=== PATIENT | female | born 1990 | race Caucasian/White ===

== ENCOUNTER 2019-06-27 21:38 | Emergency (ER) | payer BC ==
--- OUTSIDE RECORDS SUMMARY | 2019-06-27 21:45 | XMS REPORT | Continuity of Care Document ---
:1990 External Reference #:[id number] Author Name Yunier Mathew MD Address [address] [id number] Problems Description No Information Available Social History Type Date Description Comments Sex Unknown Allergies, Adverse Reactions, Alerts Description No Known Drug Allergies Medications Description No Information Available Immunizations CPT Code Status Date Vaccine Lot # [id number] Given 02/13/2019 Influenza Virus Vaccine, Quadrivalent, 3 Yr > [id number], Preserv Free Vital Signs Date Vital Result Comment 06/08/2019 12:30pm Weight 134.00 lb Weight 60.782 kg BP Systolic 118 mmHg BP Diastolic 69 mmHg Heart Rate 72 /min Body Temperature 97.3 F Respiratory Rate 16 /min O2 % BldC Oximetry 97 % 02/20/2019 10:04am Weight 122.00 lb Weight 55.339 kg BP Systolic 118 mmHg BP Diastolic 68 mmHg Heart Rate 68 /min Body Temperature 98.1 F Respiratory Rate 16 /min Height 63.5 inches 5'3.50" BMI (Body Mass Index) 21.3 kg/m2 O2 % BldC Oximetry 97 % Results Test Acquired Date Facility Test Result H/L Range Note Laboratory test finding 06/08/2019 In House Lab Strep PCR neg (607)- - Procedures Description No Information Available Medical Devices Description No Information Available Encounters Type Date Location Provider Dx Diagnosis Office Visit 02/20/2019 Main Office Taylor Clark NP J02.9 Acute pharyngitis, 10:00a unspecified Z33.1 state, incidental Assessments Date Code Description Provider 06/08/2019 J02.9 Acute pharyngitis, unspecified Yunier Mathew MD 02/20/2019 J02.9 Acute pharyngitis, unspecified Taylor Clark NP 02/20/2019 Z33.1 state, incidental Taylor Clark NP 02/13/2019 Z23 Encounter for immunization Taylor Clark NP Plan of Treatment 06/08/2019 - Yunier Mathew MDJ02.9 Acute pharyngitis, unspecifiedComments: Recommended treatment of symptoms with OTC medications as appropriate. Expect resolution of illness without intervention. Discussed warning symptoms and signs that require reevaluation of diagnosis or emergency reevaluation. Functional Status Description No Information Available Mental Status Description No Information Available Referrals Description No Information Available
[2019-06-27 21:49] VITALS: BP 109/49
[2019-06-27 21:56] LABS: Influenza B Molecular POSITIVE (Negative)
[2019-06-27] MEDS ORDERED: Oseltamivir CAP* 75 MG CAP PO ONE ×2 (21:56→21:57)
--- NOTE | 2019-06-27 21:58 | UC ---
FLU HPI - HPI Summary HPI Summary: 28-year-old who is 23 weeks comes in with influenza-like symptoms. She 's had upper respiratory tract infection symptoms for 2 or 3 days. Today she felt a sudden onset of a high fever body aches and fatigue. She took some Tylenol which did help some with the symptoms. She is feeling the baby move normally. - History of Current Complaint Chief Complaint: UCRespiratory Stated Complaint: FLU SYMPTOMS Time Seen by Provider: 06/27/19 21:39 Pain Intensity: 5 - Allergy/Home Medications Allergies/Adverse Reactions: Allergies Allergy/AdvReac Type Severity Reaction Status Date / Time No Known Allergies Allergy Verified 06/27/19 21:49 Home Medications: Home Medications Vitamin 1 tab PO DAILY 05/19/15 [History Confirmed 06/27/19] Acetaminophen/Diphenhydramine [Acetaminophen Pm Caplet] 1 each PO DAILY PRN [History Confirmed 06/27/19] Oseltamivir CAP* [Tamiflu CAP*] 75 mg PO BID #8 cap 06/27/19 [Rx] PMH/Surg Hx/FS Hx/Imm Hx Previously Healthy: Yes - Surgical History Surgical History: Yes Surgery Procedure, Year, and Place: elbow surgery as a child - Family History Known Family History: Positive: Non-Contributory - Social History Alcohol Use: None Substance Use Type: None Smoking Status (MU): Never Smoked Tobacco Have You Smoked in the Last Year: No - Immunization History Most Recent Influenza Vaccination: 03/01/15 Most Recent Tetanus Shot: 02/15/15 Most Recent Pneumonia Vaccination: none Review of Systems All Other Systems Reviewed And Are Negative: Yes Constitutional: Positive: Fever, Chills, Fatigue, Other - SEE HPI Skin: Positive: Negative Eyes: Positive: Negative ENT: Positive: Nasal Discharge Respiratory: Positive: Cough Cardiovascular: Positive: Negative Gastrointestinal: Positive: Negative Motor: Positive: Negative Neurovascular: Positive: Negative Musculoskeletal: Positive: Myalgia Neurological/Mental Status: Positive: Negative Psychological: Positive: Negative Is Patient Immunocompromised?: No Physical Exam Triage Information Reviewed: Yes Appearance: No Pain Distress, Well-Nourished, Ill-Appearing - MILD Vital Signs: Initial Vital Signs Temp 99.5 F 06/27/19 21:40 Pulse 105 06/27/19 21:40 Resp 16 06/27/19 21:40 BP 109/49 06/27/19 21:40 Pulse Ox 97 06/27/19 21:40 Vital Signs Reviewed: Yes Eye Exam: Normal Eyes: Positive: Conjunctiva Clear ENT: Positive: Nasal congestion, Nasal drainage, TMs normal Neck: Positive: Supple Respiratory: Positive: Lungs clear, Normal breath sounds, No respiratory distress Cardiovascular: Positive: RRR Abdomen Description: Positive: Other: - GRAVID Musculoskeletal: Positive: Strength Intact, ROM Intact Neurological: Positive: Alert Psychological: Positive: Age Appropriate Behavior Skin Exam: Normal Flu Course/Dx - Course Course Of Treatment: Influenza positive. Tamiflu started here in clinic. Patient's current call her OPHTHALMIC MEDICAL ASSISTANT tomorrow for further follow-up. Patient's to get reevaluated if not improving or worse. - Differential Dx/Diagnosis Provider Diagnosis: Influenza Discharge ED - Sign-Out/Discharge Documenting (check all that apply): Patient Departure All imaging exams completed and their final reports reviewed: No Studies - Discharge Plan Condition: Stable Disposition: HOME Prescriptions: Oseltamivir CAP* [Tamiflu CAP*] 75 mg PO BID #8 cap Patient Education Materials: Influenza (ED) Referrals: Yunier Mathew MD [Primary Care Provider] - Additional Instructions: FOLLOW UP WITH YOUR OBGYN. GET REEVALUATED SOONER IF NOT IMPROVED OR WORSE OR ANY QUESTIONS OR CONCERNS. - Billing Disposition and Condition Condition: STABLE Disposition: Home
== END 2019-06-27 22:05 | disposition home or self-care (01) ==
LOC: UCEAST 21:38
DX: O99.512 Diseases of the respiratory system complicating pregnancy, second trimester (principal); J11.1 Influenza due to unidentified influenza virus with other respiratory manifestations; Z3A.23 23 weeks gestation of pregnancy
CPT/HCPCS: 99212; A9270-GY; G0463

== ENCOUNTER 2019-10-21 11:24 | Inpatient (IN) ==
[2019-10-21] MEDS ORDERED: Lactated Ringers 1000 ml BAG 1,000 ML IV ONE ×2 (11:50→17:15)
[2019-10-21] MEDS ORDERED: Oxytocin in LR 20 UNITS/1,000 ML BAG IVPB SCH ×2 (13:00→23:00)
[2019-10-21] MEDS: Lactated Ringers 1000 ml BAG 1,000 ML IV SCH ×2 (14:01→16:36)
[2019-10-21 14:34] LABS: ABS Basophils 0.1 10^3/ul (0-0.2); ABS Eosinophils 0.1 10^3/ul (0-0.6); ABS Lymphocytes 2.1 10^3/ul (1.0-4.8); ABS Monocytes 0.8 10^3/ul (0-0.8); ABS Neutrophils 7.6 10^3/ul (1.5-7.7); Eosinophil % 0.9 %; Hematocrit 37 % (35-47); Hemoglobin 12.6 g/dL (12.0-16.0); Lymphocyte % 19.5 %; Mean Corpuscular HGB Conc 34 g/dL (31-36); Mean Corpuscular Hemoglobin 28 pg (27-31); Mean Corpuscular Volume 83 fL (80-97); Mean Platelet Volume 7.3 fL (7.4-10.4); Platelet Count 274 10^3/uL (150-450); Red Blood Count 4.47 10^6 /uL (3.70-4.87); Red Cell Distribution Width 14 % (10-15); White Blood Count 10.7 10^3/uL (3.5-10.8)
[2019-10-21 14:52] LABS: Urine Benzodiazepine Screen None Detected (None Detect); Urine Cannabinoids Screen None Detected (None Detect); Urine Opiates Screen None Detected (None Detect)
[2019-10-21] MEDS ORDERED: OBEPIDURAL 250 ML EPIDURAL ONE (16:31)
[2019-10-21] MEDS ORDERED: Sodium Citrate/Citric Acid LIQ 15 ML UDC PO PRN (17:15)
[2019-10-21] MEDS ORDERED: Phenylephrine 40 mcg/mL 10mL (400mcg) SYRINGE IV PUSH PRN ×2 (17:15)
[2019-10-21] MEDS ORDERED: OBEPIDURAL 250 ML EPIDURAL SCH (18:00)
[2019-10-21] MEDS ORDERED: Lactated Ringers 1000 ml BAG 1,000 ML IV SCH ×2 (18:00→23:00)
[2019-10-21] MEDS ORDERED: Dibucaine 1% OINT 28.35 GM TUBE PR PRN (22:59)
[2019-10-21] MEDS ORDERED: Witch Hazel PAD JAR TOPICAL PRN (22:59)
[2019-10-22 09:11] LABS: ABS Basophils 0.1 10^3/ul (0-0.2); ABS Eosinophils 0.1 10^3/ul (0-0.6); ABS Lymphocytes 2.5 10^3/ul (1.0-4.8); ABS Monocytes 1.2 10^3/ul (0-0.8); ABS Neutrophils 11.2 10^3/ul (1.5-7.7); Eosinophil % 0.7 %; Hematocrit 36 % (35-47); Hemoglobin 12.2 g/dL (12.0-16.0); Lymphocyte % 16.7 %; Mean Corpuscular HGB Conc 34 g/dL (31-36); Mean Corpuscular Hemoglobin 29 pg (27-31); Mean Corpuscular Volume 83 fL (80-97); Mean Platelet Volume 7.2 fL (7.4-10.4); Nucleated Red Blood Cells % 0.1; Platelet Count 254 10^3/uL (150-450); Red Blood Count 4.27 10^6 /uL (3.70-4.87); Red Cell Distribution Width 14 % (10-15); White Blood Count 15.2 10^3/uL (3.5-10.8)
[2019-10-23 08:25] VITALS: BP 107/66
== END 2019-10-23 10:15 | disposition home or self-care (01) | DRG 560 ==
LOC: MCHOBOUT 11:24 → MCHOB 11:52
PROVIDERS: ADMIT Midwife; ATTEND Midwife